=== PATIENT | female | born 1940 | race Caucasian/White ===

== ENCOUNTER → 2018-02-07 | Outpatient (CLI) | payer MEDICARE, MEDICAID ==
[~2018-02-07] MED LIST: ASPI-1158 PO; CODE473S2 PO; DORZ10DR9 LEFTEYE; ERGO2000 PO; FOLI0.8T19 PO; GABA300S PO; INSU3INS8 SQ; LATA2.5D2 LEFTEYE; MICAR4 PO; OMEP40CA34 PO; PROP10DR5 BOTHEYE; SOTA80TA PO; VITA-280 PO
== END | disposition home or self-care (01) ==
LOC: MAMMO 12:53
PROVIDERS: ATTEND Internal Medicine
DX: Z12.31 Encounter for screening mammogram for malignant neoplasm of breast (principal)
CPT/HCPCS: 77067

== ENCOUNTER 2018-11-28 11:38 | Inpatient (IN) | payer MEDICARE, MEDICAID ==
[~2018-11-28] VITALS: Ht 162.6 cm; Wt 89.8 kg
[~2018-11-28 11:38] MED LIST changes: +AMA1 PO; +AMLO2.5T45 PO; +BRIM15DR2 EACHEYE; -CODE473S2 PO; +DORZ10DR12 LEFTEYE; -DORZ10DR9 LEFTEYE; -ERGO2000 PO; -FOLI0.8T19 PO; +HYDR-4133 PO; -INSU3INS8 SQ; +LINA5TAB PO; -MICAR4 PO; +NEPVIT PO; -OMEP40CA34 PO; -SOTA80TA PO
[2018-11-28 13:03] LABS: BASOPHILS % 0.7 % (0.0-2.0); EOSINOPHILS % 2.5 % (0.0-5.0); HEMATOCRIT. 27.7 % (36.0-48.0); HEMOGLOBIN. 9.2 g/dL (12.0-16.0); LYMPHOCYTES % 21.1 % (20.0-50.0); MEAN CORPUSCULAR HEMOGLOBIN 29.7 pg (28.0-32.0); MEAN CORPUSCULAR VOLUME 89.8 fL (81.0-99.0); MEAN PLATELET VOLUME 7.3 fl (7.4-10.4); MONOCYTES % 6.9 % (2.0-8.0); NEUTROPHILS % 68.8 % (40.0-76.0); PLATELET 210 x1000/uL (130-400); RED BLOOD CELL COUNT 3.09 mill/uL (4.2-5.4); RED CELL DISTRIBUTION WIDTH 14.7 % (11.6-14.6)
[2018-11-28 13:08] LABS: CHLORIDE 112 mEq/L (98-107)
[2018-11-28] MEDS ORDERED: DEXTROSE 50% WATER 50ML SYRINGE IV PRN (15:30)
[2018-11-28] MEDS ORDERED: NITROGLYCERIN 0.4MG TABLET SL SL PRN (15:30)
[2018-11-28] MEDS ORDERED: MAGNESIUM/ALUMINUM HYDROXIDE/SIMETHICONE 30ML UDC PO PRN (15:30)
[2018-11-28] MEDS ORDERED: ACETAMINOPHEN 325MG TABLET PO PRN (15:30)
[2018-11-28] MEDS ORDERED: IPRATROPIUM/ALBUTEROL 0.5-3(2.5)MG/3ML NEB INH PRN (15:30)
[2018-11-28] MEDS ORDERED: ONDANSETRON HCL 4MG/2ML INJ IV PRN (15:30)
[2018-11-28] MEDS ORDERED: ZOLPIDEM TARTRATE 5MG TABLET PO PRN (15:30)
[2018-11-28] MEDS ORDERED: DOCUSATE SODIUM 100MG CAPSULE PO PRN (15:30)
[2018-11-28 16:00] VITALS: BP 130/79
[2018-11-28 16:14] LABS: T4 FREE 0.96 ng/dL (0.76-1.46)
[2018-11-28 16:59] LABS: VITAMIN B12 SERUM 662 pg/mL (211-911)
[2018-11-28 17:06] LABS: FOLIC ACID (FOLATE) SERUM > 20.00 ng/mL (>5.38)
[2018-11-28] MEDS: BLOOD SUGAR DIAGNOSTIC STRIP TEST SCH ×2 (17:45→21:00)
[2018-11-28 18:00] VITALS: BP 130/79
[2018-11-28] MEDS: INSULIN LISPRO 100 UNITS/ML SUBCUT SCH ×2 (18:10→21:00)
[2018-11-28] MEDS: TRAMADOL 50MG TABLET PO PRN (19:33)
[2018-11-28] MEDS ORDERED: SODIUM POLYSTYRENE SULFONATE 15 G/60 ML BOT PO NR (20:00)
[2018-11-28] MEDS ORDERED: ENOXAPARIN 30MG/0.3ML SYR SUBCUT SCH (20:00)
[2018-11-28 20:07] VITALS: BP 154/71
[2018-11-28 20:13] LABS: *AMPHETAMINES SCREEN URINE NEGATIVE (NEGATIVE); *BARBITURATES SCREEN URINE NEGATIVE (NEGATIVE); *BENZODIAZEPINES SCREEN URINE NEGATIVE (NEGATIVE)
[2018-11-28 20:14] LABS: *COCAINE SCREEN URINE NEGATIVE (NEGATIVE); CANNABINOID URINE SCREEN NEGATIVE (NEGATIVE); METHADONE URINE SCREEN NEGATIVE (NEGATIVE); OPIATES URINE SCREEN NEGATIVE (NEGATIVE); PHENCYCLIDINE URINE SCREEN NEGATIVE (NEGATIVE)
[2018-11-28] MEDS: ASCORBIC ACID 500 MG TABLET PO SCH (21:40)
[2018-11-28] MEDS: FAMOTIDINE 20MG TABLET PO SCH (21:40)
[2018-11-28] MEDS: METOPROLOL TARTRATE 25MG TABLET PO SCH (21:41)
[2018-11-29 00:05] VITALS: BP 152/58
[2018-11-29 00:45] LABS: PROTHROMBIN TIME 9.9 sec (9.1-11.1)
[2018-11-29 01:19] LABS: CREATINE KINASE 115 IU/L (26-192)
[2018-11-29 01:23] LABS: CREATINE KINASE MB FRACTION 2.4 ng/mL (0.5-3.6)
[2018-11-29 04:00] VITALS: BP 127/44
[2018-11-29 07:42] LABS: BASOPHILS % 0.6 % (0.0-2.0); HEMATOCRIT. 25.7 % (36.0-48.0); HEMOGLOBIN. 8.3 g/dL (12.0-16.0); LYMPHOCYTES % 17.9 % (20.0-50.0); MEAN CORPUSCULAR HEMOGLOBIN 29.1 pg (28.0-32.0); MEAN CORPUSCULAR VOLUME 89.9 fL (81.0-99.0); MEAN PLATELET VOLUME 7.4 fl (7.4-10.4); MONOCYTES % 7.5 % (2.0-8.0); PLATELET 179 x1000/uL (130-400); RED BLOOD CELL COUNT 2.86 mill/uL (4.2-5.4); RED CELL DISTRIBUTION WIDTH 14.7 % (11.6-14.6)
[2018-11-29 08:00] VITALS: BP 154/58
[2018-11-29 08:04] LABS: CHLORIDE 113 mEq/L (98-107)
[2018-11-29] MEDS: INSULIN LISPRO 100 UNITS/ML SUBCUT SCH ×4 (08:10→20:39)
[2018-11-29] MEDS: METOPROLOL TARTRATE 25MG TABLET PO SCH (08:23)
[2018-11-29] MEDS: BLOOD SUGAR DIAGNOSTIC STRIP TEST SCH ×4 (08:26→20:30)
[2018-11-29 08:38] LABS: CREATINE KINASE 97 IU/L (26-192)
[2018-11-29 08:41] LABS: CREATINE KINASE MB FRACTION 1.8 ng/mL (0.5-3.6)
[2018-11-29] MEDS: ASCORBIC ACID 500 MG TABLET PO SCH ×2 (09:24→20:40)
[2018-11-29] MEDS: ASPIRIN 325MG EC TABLET PO SCH (09:24)
[2018-11-29] MEDS: ZINC SULFATE 220 MG ( 50 ) CAPSULE PO SCH (09:28)
[2018-11-29 12:00] VITALS: BP 150/49
[2018-11-29] MEDS: MECLIZINE 12.5MG TABLET PO SCH ×2 (14:30→20:40)
[2018-11-29 16:00] VITALS: BP_SYST 132; BP_SYST 146; BP_SYST 172; BP_DIAS 60; BP_DIAS 65; BP_DIAS 66
[2018-11-29 17:22] LABS: CLARITY URINE CLEAR (CLEAR); COLOR URINE YELLOW (YELLOW); KETONES URINE NEGATIVE (NEGATIVE); LEUKOCYTE ESTERASE URINE NEGATIVE (NEGATIVE); NITRITE URINE NEGATIVE (NEGATIVE); OCCULT BLOOD URINE 1+ (NEGATIVE); PH URINE 6.5 (4.5-8.0); PROTEIN URINE 3+ (NEGATIVE); UROBILINOGEN URINE 0.2 E.U./dL (0.2-1.0)
[2018-11-29 20:00] VITALS: BP 158/55
[2018-11-29] MEDS: FAMOTIDINE 20MG TABLET PO SCH (20:40)
[2018-11-29] MEDS ORDERED: EPOETIN ALFA 10000UNITS/ML VIAL SUBCUT SCH (21:00)
[2018-11-29] MEDS ORDERED: AMLODIPINE 5MG TABLET PO SCH (21:00)
[2018-11-30] VITALS (8 sets, daily range): BP systolic 132–170; BP diastolic 45–91
[2018-11-30] MEDS: BLOOD SUGAR DIAGNOSTIC STRIP TEST SCH ×4 (06:42→21:00)
[2018-11-30 08:04] LABS: BASOPHILS % 0.4 % (0.0-2.0); HEMATOCRIT. 27.9 % (36.0-48.0); HEMOGLOBIN. 9.3 g/dL (12.0-16.0); LYMPHOCYTES % 20.6 % (20.0-50.0); MEAN CORPUSCULAR HEMOGLOBIN 29.8 pg (28.0-32.0); MEAN CORPUSCULAR VOLUME 89.3 fL (81.0-99.0); MONOCYTES % 8.9 % (2.0-8.0); NEUTROPHILS % 67.1 % (40.0-76.0); PLATELET 186 x1000/uL (130-400); RED BLOOD CELL COUNT 3.13 mill/uL (4.2-5.4); RED CELL DISTRIBUTION WIDTH 14.6 % (11.6-14.6)
[2018-11-30] MEDS: INSULIN LISPRO 100 UNITS/ML SUBCUT SCH ×4 (08:10→20:40)
[2018-11-30 08:25] LABS: PHOSPHORUS 4.2 mg/dL (2.5-4.9)
[2018-11-30] MEDS: TRAMADOL 50MG TABLET PO PRN (10:09)
[2018-11-30] MEDS: ASCORBIC ACID 500 MG TABLET PO SCH ×2 (10:10→20:35)
[2018-11-30] MEDS: ASPIRIN 325MG EC TABLET PO SCH (10:10)
[2018-11-30] MEDS: MECLIZINE 12.5MG TABLET PO SCH ×2 (10:10→20:36)
[2018-11-30] MEDS: ZINC SULFATE 220 MG ( 50 ) CAPSULE PO SCH (10:10)
[2018-11-30] MEDS: AMLODIPINE 5MG TABLET PO SCH (10:14)
[2018-11-30] MEDS: SODIUM CHLORIDE 0.45% 1,000 ML IV SCH ×2 (12:19→20:44)
[2018-11-30] MEDS: FAMOTIDINE 20MG TABLET PO SCH (20:35)
[2018-11-30] MEDS: HYDRALAZINE HCL 10MG TABLET PO SCH (20:36)
[2018-12-01] VITALS (7 sets, daily range): BP systolic 141–185; BP diastolic 47–85
[2018-12-01 07:14] LABS: BASOPHILS % 0.4 % (0.0-2.0); EOSINOPHILS % 1.7 % (0.0-5.0); HEMATOCRIT. 26.8 % (36.0-48.0); LYMPHOCYTES % 14.9 % (20.0-50.0); MEAN CORPUSCULAR VOLUME 89.3 fL (81.0-99.0); MEAN PLATELET VOLUME 7.2 fl (7.4-10.4); MONOCYTES % 8.2 % (2.0-8.0); NEUTROPHILS % 74.8 % (40.0-76.0); PLATELET 192 x1000/uL (130-400); RED CELL DISTRIBUTION WIDTH 14.6 % (11.6-14.6)
[2018-12-01 07:36] LABS: CHLORIDE 110 mEq/L (98-107)
[2018-12-01] MEDS: BLOOD SUGAR DIAGNOSTIC STRIP TEST SCH ×4 (07:40→20:08)
[2018-12-01] MEDS: SODIUM CHLORIDE 0.45% 1,000 ML IV SCH ×2 (09:30→21:24)
[2018-12-01] MEDS: ZINC SULFATE 220 MG ( 50 ) CAPSULE PO SCH (09:46)
[2018-12-01] MEDS: AMLODIPINE 5MG TABLET PO SCH (09:46)
[2018-12-01] MEDS: ASPIRIN 325MG EC TABLET PO SCH (09:46)
[2018-12-01] MEDS: MECLIZINE 12.5MG TABLET PO SCH ×2 (09:46→20:29)
[2018-12-01] MEDS: ASCORBIC ACID 500 MG TABLET PO SCH ×2 (09:46→20:29)
[2018-12-01] MEDS: HYDRALAZINE HCL 10MG TABLET PO SCH ×2 (09:47→20:29)
[2018-12-01] MEDS: FUROSEMIDE 40MG TABLET PO SCH ×2 (09:55→17:58)
[2018-12-01] MEDS: INSULIN LISPRO 100 UNITS/ML SUBCUT SCH ×4 (09:57→20:38)
[2018-12-01] MEDS: FAMOTIDINE 20MG TABLET PO SCH (20:29)
[2018-12-01] MEDS: CLONIDINE 0.1MG TABLET PO PRN (20:29)
[2018-12-02 04:00] VITALS: BP 169/68
[2018-12-02] MEDS: FUROSEMIDE 40MG TABLET PO SCH (04:43)
[2018-12-02] MEDS: CLONIDINE 0.1MG TABLET PO PRN (04:43)
[2018-12-02] MEDS: BLOOD SUGAR DIAGNOSTIC STRIP TEST SCH ×4 (07:52→22:59)
[2018-12-02 08:00] VITALS: BP 154/62
[2018-12-02 08:57] LABS: BASOPHILS % 0.5 % (0.0-2.0); EOSINOPHILS % 1.3 % (0.0-5.0); HEMATOCRIT. 27.4 % (36.0-48.0); HEMOGLOBIN. 9.2 g/dL (12.0-16.0); LYMPHOCYTES % 13.6 % (20.0-50.0); MEAN CORPUSCULAR HEMOGLOBIN 29.6 pg (28.0-32.0); MEAN CORPUSCULAR VOLUME 88.7 fL (81.0-99.0); MEAN PLATELET VOLUME 7.3 fl (7.4-10.4); MONOCYTES % 7.1 % (2.0-8.0); NEUTROPHILS % 77.5 % (40.0-76.0); PLATELET 202 x1000/uL (130-400); RED BLOOD CELL COUNT 3.09 mill/uL (4.2-5.4); RED CELL DISTRIBUTION WIDTH 14.6 % (11.6-14.6)
[2018-12-02] MEDS: MECLIZINE 12.5MG TABLET PO SCH ×2 (09:00→23:01)
[2018-12-02] MEDS: INSULIN LISPRO 100 UNITS/ML SUBCUT SCH ×4 (09:09→23:30)
[2018-12-02] MEDS: ZINC SULFATE 220 MG ( 50 ) CAPSULE PO SCH (09:12)
[2018-12-02] MEDS: ASPIRIN 325MG EC TABLET PO SCH (09:13)
[2018-12-02] MEDS: ASCORBIC ACID 500 MG TABLET PO SCH ×2 (09:13→23:01)
[2018-12-02] MEDS: AMLODIPINE 5MG TABLET PO SCH (09:17)
[2018-12-02] MEDS: HYDRALAZINE HCL 10MG TABLET PO SCH ×2 (09:18→21:45)
[2018-12-02] MEDS: SODIUM CHLORIDE 0.45% 1,000 ML IV SCH ×2 (10:30→23:11)
[2018-12-02] MEDS: GUAIFENESIN 200MG/10ML SUGAR FREE UDC PO PRN (11:27)
[2018-12-02 20:51] VITALS: BP 144/55
[2018-12-02] MEDS: FAMOTIDINE 20MG TABLET PO SCH (23:02)
[2018-12-03] VITALS: BP 156/65
[2018-12-03 04:00] VITALS: BP 150/68
[2018-12-03] MEDS: GUAIFENESIN 200MG/10ML SUGAR FREE UDC PO PRN (04:49)
[2018-12-03] MEDS: FUROSEMIDE 40MG TABLET PO SCH ×2 (06:23→06:56)
[2018-12-03] MEDS: BLOOD SUGAR DIAGNOSTIC STRIP TEST SCH ×4 (06:57→21:00)
[2018-12-03 08:00] VITALS: BP 157/60
[2018-12-03 08:04] LABS: BASOPHILS % 0.5 % (0.0-2.0); EOSINOPHILS % 0.6 % (0.0-5.0); HEMATOCRIT. 26.1 % (36.0-48.0); LYMPHOCYTES % 10.2 % (20.0-50.0); MEAN CORPUSCULAR HEMOGLOBIN 30.5 pg (28.0-32.0); MEAN CORPUSCULAR VOLUME 88.7 fL (81.0-99.0); MEAN PLATELET VOLUME 7.3 fl (7.4-10.4); NEUTROPHILS % 76.7 % (40.0-76.0); PLATELET 191 x1000/uL (130-400); RED BLOOD CELL COUNT 2.94 mill/uL (4.2-5.4); RED CELL DISTRIBUTION WIDTH 14.2 % (11.6-14.6)
[2018-12-03] MEDS: ASCORBIC ACID 500 MG TABLET PO SCH ×2 (08:43→21:11)
[2018-12-03] MEDS: HYDRALAZINE HCL 10MG TABLET PO SCH ×2 (08:43→21:11)
[2018-12-03] MEDS: AMLODIPINE 5MG TABLET PO SCH ×2 (08:43→21:12)
[2018-12-03] MEDS: ZINC SULFATE 220 MG ( 50 ) CAPSULE PO SCH (08:43)
[2018-12-03] MEDS: ASPIRIN 325MG EC TABLET PO SCH (08:43)
[2018-12-03] MEDS: MECLIZINE 12.5MG TABLET PO SCH ×2 (08:43→21:11)
[2018-12-03] MEDS: INSULIN LISPRO 100 UNITS/ML SUBCUT SCH ×4 (08:54→21:00)
[2018-12-03 12:00] VITALS: BP 140/57
[2018-12-03 16:00] VITALS: BP_SYST 127; BP_SYST 135; BP_DIAS 67; BP_DIAS 77
[2018-12-03] MEDS ORDERED: OSELTAMIVIR 30MG CAPSULE PO SCH (16:08)
[2018-12-03 20:00] VITALS: BP_SYST 139; BP_SYST 141; BP_SYST 162; BP_DIAS 66; BP_DIAS 69
[2018-12-03] MEDS: FAMOTIDINE 20MG TABLET PO SCH (21:11)
[2018-12-03] MEDS: OSELTAMIVIR 30MG CAPSULE PO SCH (21:12)
[2018-12-04 00:05] VITALS: BP 157/61
[2018-12-04 04:00] VITALS: BP 151/66
[2018-12-04 06:51] LABS: HEMATOCRIT. 28.5 % (36.0-48.0); HEMOGLOBIN. 9.5 g/dL (12.0-16.0); MEAN CORPUSCULAR VOLUME 89.7 fL (81.0-99.0); PLATELET 174 x1000/uL (130-400); RED BLOOD CELL COUNT 3.17 mill/uL (4.2-5.4); RED CELL DISTRIBUTION WIDTH 14.1 % (11.6-14.6)
[2018-12-04 07:11] LABS: PHOSPHORUS 4.3 mg/dL (2.5-4.9)
[2018-12-04] MEDS: BLOOD SUGAR DIAGNOSTIC STRIP TEST SCH ×2 (07:40→12:24)
[2018-12-04 08:00] VITALS: BP 154/68
[2018-12-04] MEDS: INSULIN LISPRO 100 UNITS/ML SUBCUT SCH ×2 (08:10→12:25)
[2018-12-04] MEDS ORDERED: CLONIDINE 0.2MG TABLET PO PRN (10:15)
[2018-12-04] MEDS: ASCORBIC ACID 500 MG TABLET PO SCH (10:28)
[2018-12-04] MEDS: MECLIZINE 12.5MG TABLET PO SCH (10:28)
[2018-12-04] MEDS: ZINC SULFATE 220 MG ( 50 ) CAPSULE PO SCH (10:29)
[2018-12-04] MEDS ORDERED: CLONIDINE 0.1MG TABLET PO PRN (10:30)
[2018-12-04] MEDS: AMLODIPINE 5MG TABLET PO SCH (10:30)
[2018-12-04 10:42] LABS: PLATELET ESTIMATE NORMAL
[2018-12-04] MEDS: OSELTAMIVIR 30MG CAPSULE PO SCH (11:40)
[2018-12-04 12:00] VITALS: BP 153/52
[2018-12-04] MEDS ORDERED: HYDRALAZINE HCL 10MG TABLET PO SCH (14:00)
[2018-12-04 15:53] VITALS: BP 153/62
[2018-12-04 16:00] VITALS: BP 139/64
[2018-12-05] MEDS ORDERED: ASPIRIN 81MG EC TABLET PO SCH (09:00)
== END 2018-12-04 17:30 | disposition home health service (06) | DRG 682 ==
LOC: ER 11:52 → 7WST 14:01 → ENRESERV 15:25 → CANRESERV 15:25 → SUPCPDRO 15:26 → ENRESERV 15:34
PROVIDERS: ADMIT Internal Medicine; ATTEND Internal Medicine
DX: N17.0 Acute kidney failure with tubular necrosis (principal); E43 Unspecified severe protein-calorie malnutrition; S06.0X0A Concussion without loss of consciousness, initial encounter; G90.8 Other disorders of autonomic nervous system; E83.51 Hypocalcemia; E87.5 Hyperkalemia; I13.10 Hypertensive heart and chronic kidney disease without heart failure, with stage 1 through stage 4 chronic kidney disease, or unspecified chronic kidney disease; D64.9 Anemia, unspecified; H91.10 Presbycusis, unspecified ear; I44.0 Atrioventricular block, first degree; E11.22 Type 2 diabetes mellitus with diabetic chronic kidney disease; N18.3 Chronic kidney disease, stage 3 (moderate); M54.2 Cervicalgia; R51 Headache; R79.89 Other specified abnormal findings of blood chemistry; E88.09 Other disorders of plasma-protein metabolism, not elsewhere classified; I48.0 Paroxysmal atrial fibrillation; B35.9 Dermatophytosis, unspecified; D63.8 Anemia in other chronic diseases classified elsewhere; J10.1 Influenza due to other identified influenza virus with other respiratory manifestations; E66.9 Obesity, unspecified; I25.10 Atherosclerotic heart disease of native coronary artery without angina pectoris; S00.03XA Contusion of scalp, initial encounter; W18.30XA Fall on same level, unspecified, initial encounter; Y92.098 Other place in other non-institutional residence as the place of occurrence of the external cause; Y99.8 Other external cause status; Y93.G1 Activity, food preparation and clean up; Z82.49 Family history of ischemic heart disease and other diseases of the circulatory system; Z83.3 Family history of diabetes mellitus; Z98.61 Coronary angioplasty status; Z87.440 Personal history of urinary (tract) infections; Z68.34 Body mass index [BMI] 34.0-34.9, adult; Z88.1 Allergy status to other antibiotic agents; Z79.899 Other long term (current) drug therapy
CPT/HCPCS: 36415; 70551; 71045; 76770; 80048; 80061; 80305; 82550; 82553; 82607; 82746; 82962; 83036; 83540; 83550; 83735; 83880; 84100; 84439; 84443; 84484; 87804; 93005; 93306; 93880; 93970; 97116; 97162; 97166; 97530; 99285; C1893; J0885; J1650; J1815; J2405; J7050; J8597